=== PATIENT | male | born 1960 | race Caucasian/White ===

== ENCOUNTER 2017-04-10 17:10 | Outpatient (CLI) | payer OTHER ==
--- NOTE | 2017-04-11 09:57 | XRAY Report ---
DATE OF SERVICE: 04/10/2017 RIGHT HIP AND PELVIS: 04/10/2017 CLINICAL INDICATION: Severe pain status post fall. FINDINGS: Frontal view of the hips and pelvis and frogleg lateral view of the right hip demonstrate severe right hip osteoarthritis, with complete collapse of the superior joint space and marginal osteophytes. There is no evidence of acute fracture or dislocation. No radiopaque foreign body is seen in the soft tissues. IMPRESSION: SEVERE RIGHT HIP OSTEOARTHRITIS. TD: 04/11/2017 10:56
== END 2017-04-10 17:11 | disposition home or self-care (01) ==
LOC: DI 17:10
PROVIDERS: ATTEND Internal Medicine
DX: M16.11 Unilateral primary osteoarthritis, right hip (principal)